=== PATIENT | female | born 1985 | race Caucasian/White ===

== ENCOUNTER 2023-05-30 07:54 | Outpatient (CLI) | payer OTHER, SELFPAY ==
--- NOTE | 2023-05-30 08:24 | MM_ITS ---
WS: [id number] Bilateral screening 3D tomosynthesis digital mammogram, 05/30/2023 Clinical Data: SCREEN Comparison: None. Findings: The breast parenchymal pattern shows fat replacement. No spiculated masses or clustered calcification s are seen. There are no secondary signs of carcinoma. Impression: 1. Negative bilateral mammogram with no prior exam for review. 2. Recommend annual screening mammograms. MM/[place] [address] BIRADS: 1-Negative FOLLOW UP: 1 Year Follow-up The CAD program checker was used.
== END 2023-05-30 07:55 | disposition home or self-care (01) ==
LOC: RAD 07:55
PROVIDERS: PCP Nurse Practitioner; Visit Provider Nurse Practitioner
DX: Z12.31 Encounter for screening mammogram for malignant neoplasm of breast (principal)
CPT/HCPCS: 77063; 77067

== ENCOUNTER 2023-10-13 06:00 | Outpatient (CLI) | payer OTHER, SELFPAY | END 2023-10-13 23:59 | disposition home or self-care (01) | LOC: SPT 10-14 07:43 | PROVIDERS: PCP Nurse Practitioner; Visit Provider Specialist | DX: Z46.89 Encounter for fitting and adjustment of other specified devices (principal); G56.03 Carpal tunnel syndrome, bilateral upper limbs | CPT/HCPCS: 99204; L3908 ==

== ENCOUNTER → 2023-10-13 12:58 | Outpatient (BNVA) | payer OTHER, SELFPAY | PROVIDERS: PCP Nurse Practitioner; Referring Provider Nurse Practitioner; Visit Provider Specialist | DX: G56.03 Carpal tunnel syndrome, bilateral upper limbs | CPT/HCPCS: 73110 ==

== ENCOUNTER → 2024-05-24 08:38 | Outpatient (BNVA) | payer OTHER, SELFPAY | PROVIDERS: PCP Nurse Practitioner; Visit Provider Specialist | DX: G56.01 Carpal tunnel syndrome, right upper limb (principal) | CPT/HCPCS: 99214 ==

== ENCOUNTER → 2024-06-21 09:16 | Outpatient (BNVA) | payer OTHER, SELFPAY | PROVIDERS: PCP Nurse Practitioner; Visit Provider Specialist | DX: G56.03 Carpal tunnel syndrome, bilateral upper limbs (principal) | CPT/HCPCS: 99214 ==

== ENCOUNTER 2024-07-01 05:35 | Day surgery (SDC) | payer OTHER, SELFPAY ==
[2024-07-01] VITALS (10 sets, daily range): BP systolic 92–131; BP diastolic 46–86; PULSE 63–73; RESP 14–18; TEMP 36.2–36.6; O2SAT 96–100
[2024-07-01] MEDS: sodium chloride 0.9% 1,000 ML 30 ML IV (06:06)
[2024-07-01] MEDS: CELEcoxib 200 mg Capsule 400 MG PO (06:06)
[2024-07-01] MEDS: acetaminophen 1,000 MG/100 ML PIGGYBACK 400 MG IV (06:06)
--- NOTE | 2024-07-01 06:20 | ANES.PREANE2 ---
Pre-Anesthetic Assessment Height/Weight: Height 5 ft 9 in Weight 175 lb Temp Pulse Resp BP Pulse Ox O2 Del Method 97.6 F 63 16 104/46 98 Room Air 07/01/24 05:51 07/01/24 05:51 07/01/24 05:51 07/01/24 05:51 07/01/24 05:51 07/01/24 05:51 Preop Diagnosis: Carpal tunnel Operation Date: 07/01/24 07:00 Proposed Procedures p Carpal Tunnel Release(Right) - Reyna Sebastian MD Was Beta Danitza taken within 24 hours: N/A Was Clonidine taken within 24 hours: N/A Last intake: Intake Last Liquid Date 06/30/24 Last Liquid Time 23:40 Last Solid Date 06/30/24 Last Solid Time 22:30 Social Tobacco and No alcohol Exam alert, oriented x 3, clear to auscultation bilaterally and regular rate & rhythm Airway Submandibular: within normal limits Cervical ROM: within normal limits Mallampati: Class II Dentition: full Comments: Comments: Denies any loose teeth Anesthetic Plan ASA status: 2 Anesthesia: General Other: No prior issues with anesthesia NPO since yesterday Current smoker, nicotine and marijuana Patient is transitioning to a male and takes weekly testosterone injections Denies any cardiac issues METs greater than 4 Plan for general anesthesia Medications/Allergies Home Medications Medication Instructions Recorded Confirmed Last Taken Type Cock Up Wrist Splints #1 ea 10/13/23 06/21/24 Unknown Rx testosterone enanthate 100 mg/0.5 100 mg SUBCUT Q7D 05/24/24 07/01/24 06/28/24 History mL subcutaneous auto-injector Allergies Allergy/AdvReac Type Severity Reaction Status Date / Time No Known Allergies Allergy Verified 06/30/24 10:11 Current Medications Generic Name Dose Route Start Last Admin Trade Name Freq PRN Reason Stop Dose Admin Sodium Chloride 1,000 mls @ 30 mls/hr 07/01/24 05:45 07/01/24 06:06 Sodium Chloride 0.9% IV 07/02/24 05:44 30 mls/hr .Q24H JIMMIE Administration PFSH Anesthesia Social History Smoking and tobacco/nicotine status: never used tobacco/nicotine Female Reproductive History Date of last menstrual period: 07/01/23 Data Anesthesia Cardiac Studies: No Data to Display
[2024-07-01 06:51] LABS: OR HCG Qualitative Urine Negative (Negative)
[2024-07-01] MEDS: ceFAZolin 2,000 mg SDV 2000 MG IVP (07:04)
--- NOTE | 2024-07-01 07:05 | P.HPUD_ITS ---
Surgery/Procedure H&P Update DATE OF PROCEDURE: July 01, 2024 DATE H&P PERFORMED: 06/21/24 H&P UPDATE INFORMATION: I have reviewed H&P completed within last 30 days, I have examined patient prior to procedure, No changes to prior documentation and H&P is in [facility] EMR on date indicated PREOP DIAGNOSIS: Carpal tunnel PLANNED PROCEDURE: Operation Date: 07/01/24 07:00 Proposed Procedures p Carpal Tunnel Release(Right) - Reyna Sebastian MD Related Problem List Diagnoses (1) Carpal tunnel syndrome on right:
[2024-07-01] MEDS: BUPivacaine 0.5% INJ 30 mL XX (07:35)
--- NOTE | 2024-07-01 08:31 | PM.OP ---
Operative Report Date of procedure: July 01, 2024 Pre-op diagnosis: Right carpal tunnel syndrome Post-op diagnosis: Right carpal tunnel syndrome Post-op findings: Severe compression across the carpal canal with compression across the median nerve and purpleish discoloration Procedure done: Right carpal tunnel release Implants: None Specimens removed/disposition: None Pathology: None Surgeon: Reyna Sebastian MD [employer] Design Lead: None Anesthesia: General (Per LMA, ASA 2) Estimated blood loss (mL): 2 Tourniquet time (min): 20 (At 250 mmHg) IV fluids (mL): 500 Urine output (mL): 0 (No Espinoza) Complications: None Findings: Compression across the median nerve with purplish discoloration and compression Condition: stable Disposition: PACU (Then return to same-day surgery for discharge to home) Brief History: This 39-year-old patient presented to my office for evaluation of right hand numbness and pain consistent with carpal tunnel syndrome. The patient had nerve conduction studies obtained in [place] which demonstrated findings consistent with moderate carpal tunnel syndrome bilaterally. Her right hand was worse than her left. She wished to proceed with carpal tunnel release. While in the office, questions were answered, risks and complications were discussed, and consents were signed. Procedure: The patient was brought to the operating theater. The patient had a general anesthesia per LMA, ASA 2. The tourniquet was elevated to 250 mmHg for a total tourniquet time of 20 minutes. The patient was also given Ancef 2 g preoperatively. The arm was then prepped and draped with DuraPrep in usual fashion with the arm draped free. A surgical pause was performed. At the time, the surgical pause, we confirmed the site and side of surgery. We also confirmed the patient's identity, appropriate and timely administration of preoperative antibiotics and preoperative surgical markings. An incision was then made along the thenar crease. The incision crossed the wrist joint in a curvilinear fashion. Dissection continued through skin and soft tissues using a scalpel. The palmaris longus was identified along with the transverse carpal ligament. Each of these was released carefully to avoid injury to the median nerve. We were able to dissect gently into the carpal canal which was noted to be quite tight with significant compression across the median nerve. The nerve was visualized and was an hourglass shape. The canal was subsequently palpated to assure there was no bony encroachment upon the canal. There was a quite thickened fibrous tissue within the canal, and this was opened longitudinally as well. The canal was then palpated distally and proximally to assure that my small finger was passed easily without impingement. Finding this to be so, attention was directed to closure. The wound was irrigated with ropivacaine plain. It was then closed with 3-0 nylon in an interrupted mattress fashion. Sterile dressing was then placed consisting of Dermabond, OpSite, fluffed fluffs, sterile soft roll, and an Jemal wrap. The tourniquet was released after 20 minutes. There were no complications. There were no specimens. The procedure was well tolerated. Plan is the patient will be discharged home. Related Problem List Diagnoses (1) Carpal tunnel syndrome on right:
--- NOTE | 2024-07-01 09:07 | ANE.PACU2 ---
Inpatient post-anesthesia follow up: Airway intact: Yes Vital signs: Temperature 98 F Pulse Rate 73 Respiratory Rate 18 Blood Pressure 108/60 Pulse Oximetry 98 Oxygen Delivery Me thod Room Air Oxygen Flow Rate 7 Fraction of Inspir ed Oxygen Hydration adequate: Yes Nausea and vomiting: No Pain level: 1 Mental status: Baseline
== END 2024-07-01 09:07 | disposition home or self-care (01) ==
PROVIDERS: Anesthesiology; PCP Nurse Practitioner; Visit Provider Specialist
PROC: (CPT 64721; principal; 2024-07-01 07:00)
DX: G56.01 Carpal tunnel syndrome, right upper limb (principal); F17.200 Nicotine dependence, unspecified, uncomplicated
CPT/HCPCS: 64721; 81025; J0131; J0690; J1100; J2250; J2405; J2704; J3010; J3490; J7030

== ENCOUNTER → 2024-07-14 09:51 | Outpatient (BNVA) | payer OTHER, SELFPAY | PROVIDERS: PCP Nurse Practitioner; Visit Provider Nurse Practitioner | DX: Z98.890 Other specified postprocedural states (principal); Z48.89 Encounter for other specified surgical aftercare | CPT/HCPCS: 99024 ==

== ENCOUNTER 2024-10-12 12:14 | Outpatient (CLI) | payer OTHER, SELFPAY ==
--- NOTE | 2024-10-12 12:15 | MM_ITS ---
WS: [id number] BILATERAL 3D TOMOSYNTHESIS DIGITAL SCREENING MAMMOGRAPHY WITH CAD CLINICAL INFORMATION: SCREENING HISTORY: Screening mammogram. No current complaints. COMPARISON: 2022 TECHNIQUE: Bilateral CC and MLO views. FINDINGS: The breasts are composed of heterogeneous fibroglandular density tissue, which can limit the detection of small underlying mass lesions. No suspicious mass, asymmetry, calcifications, or architectural distortion. No evidence of malignancy. MM/MM scr tomosynthesis [id number] IMPRESSION: DENSITY: The breasts are heterogeneously dense, which may obscure small masses. BI-RADS: 1 - Negative FOLLOW UP: 1 Year Follow-up Recommend return to annual screening mammography.
== END 2024-10-12 12:15 | disposition home or self-care (01) ==
LOC: RAD 12:14
PROVIDERS: PCP Nurse Practitioner; Visit Provider Nurse Practitioner
DX: Z12.31 Encounter for screening mammogram for malignant neoplasm of breast (principal); R92.333 Mammographic heterogeneous density, bilateral breasts
CPT/HCPCS: 77063; 77067

== ENCOUNTER → 2025-04-11 14:54 | Outpatient (BNVA) | payer OTHER, SELFPAY | PROVIDERS: PCP Nurse Practitioner; Visit Provider Specialist | DX: G56.02 Carpal tunnel syndrome, left upper limb (principal); Z01.818 Encounter for other preprocedural examination | CPT/HCPCS: 36415; 73110; 80053; 81003; 85025; 87086; 99215 ==

== ENCOUNTER 2025-05-10 12:43 | Day surgery (SDC) | payer OTHER, SELFPAY ==
[2025-05-10] VITALS (10 sets, daily range): BP systolic 99–133; BP diastolic 51–83; PULSE 55–72; RESP 17–18; TEMP 36.1–36.6; O2SAT 95–100; BMI 26.1
[2025-05-10] MEDS: acetaminophen 1,000 MG/100 ML PIGGYBACK 400 MG IV (13:19)
[2025-05-10 13:35] LABS: OR HCG Qualitative Urine Negative (Negative)
--- NOTE | 2025-05-10 14:43 | ANES.PREANE2 ---
Pre-Anesthetic Assessment Height/Weight: Height 1.75 m Weight 80.286 kg Temp Pulse Resp BP Pulse Ox O2 Del Method 97.6 F 61 17 108/63 99 Room Air 05/10/25 13:07 05/10/25 13:07 05/10/25 13:07 05/10/25 13:07 05/10/25 13:07 05/10/25 13:07 Operation Date: 05/10/25 14:30 Proposed Procedures p LEFT Carpal Tunnel Release(Left) - Reyna Sebastian MD Familial anesthetic complications: None Was Beta Danitza taken within 24 hours: N/A Was Clonidine taken within 24 hours: N/A Last intake: Intake Last Liquid Date 05/09/25 Last Liquid Time 22:30 Last Solid Date 05/09/25 Last Solid Time 22:30 Social Tobacco and No alcohol Exam alert, oriented x 3, clear to auscultation bilaterally and regular rate & rhythm Airway Mallampati: Class II Dentition: loose Metabolic Weekly testosterone injections Anesthetic Plan ASA status: 2 Anesthesia: General Risk of > 500 ml blood loss (7ml/kg in children): No Medications/Allergies Home Medications ?Medication ?Instructions ?Recorded ?Confirmed ?Last Taken ?Type Cock Up Wrist Splints #1 ea 10/13/23 04/12/25 Unknown Rx testosterone enanthate 100 mg/0.5 100 mg SUBCUT Q7D 05/24/24 05/09/25 05/05/25 History mL subcutaneous auto-injector Allergies Allergy/AdvReac Type Severity Reaction Status Date / Time No Known Allergies Allergy Verified 05/10/25 13:07 Current Medications Generic Name Dose Route Start Last Admin Trade Name mSith PRN Reason Stop Dose Admin Sodium Chloride 1,000 mls @ 30 mls/hr 05/10/25 13:00 05/10/25 13:20 Sodium Chloride 0.9% IV 05/11/25 12:59 30 mls/hr .Q24H JIMMIE Administration PFSH Anesthesia Social History Smoking and tobacco/nicotine status: never used tobacco/nicotine
--- NOTE | 2025-05-10 14:53 | W.PM.OPSUD ---
Surgery/Procedure H&P Update DATE OF PROCEDURE: May 10, 2025 DATE H&P PERFORMED: 04/11/25 H&P UPDATE INFORMATION: I have reviewed H&P completed within last 30 days, I have examined patient prior to procedure, No changes to prior documentation, H&P is in [facility] EMR on date indicated and Risks and benefits of the procedure reviewed PLANNED PROCEDURE: Operation Date: 05/10/25 14:30 Proposed Procedures p LEFT Carpal Tunnel Release(Left) - Reyna Sebastian MD Related Problem List Diagnoses 1. Carpal tunnel syndrome, left:
[2025-05-10] MEDS: ceFAZolin 2,000 mg SDV 2000 MG IVP (15:00)
[2025-05-10] MEDS: BUPivacaine 0.5% INJ 30 mL INJECTION (15:31)
--- NOTE | 2025-05-10 15:43 | P.OP_ITS ---
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 Patient was having increasing pain and numbness. On July 01, 2024, the patient underwent right carpal tunnel release and has done well following this. After discussion in the office, plans were made to proceed with left carpal tunnel release. Consents were signed and questions were answered. Further Opportunity for questions was offered the day of surgery. Procedure: The patient was brought to the operating theater. The patient had a general anesthesia per LMA, ASA 2. The tourniquet was elevated to 250 mmHg for a total tourniquet time of 18 minutes. The patient was also given Ancef 2 g preoperatively. The arm was then prepped and draped with DuraPrep in usual fashion with the arm draped free. A surgical pause was performed. At the time, the surgical pause, we confirmed the site and side of surgery. We also confirmed the patient's identity, appropriate and timely administration of preoperative antibiotics and preoperative surgical markings. An incision was then made along the thenar crease. The incision crossed the wrist joint in a curvilinear fashion. Dissection continued through skin and soft tissues using a scalpel. The palmaris longus was identified along with the transverse carpal ligament. Each of these was released carefully to avoid injury to the median nerve. We were able to dissect gently into the carpal canal which was noted to be quite tight with significant compression across the median nerve. The nerve was visualized and was an hourglass shape. The canal was subsequently palpated to assure there was no bony encroachment upon the canal. There was a quite thickened fibrous tissue within the canal, and this was opened longitudinally as well. The canal was then palpated distally and proximally to assure that my small finger was passed easily without impingement. Finding this to be so, attention was directed to closure. The wound was irrigated with ropivacaine plain. It was then closed with 3-0 nylon in an interrupted mattress fashion. Sterile dressing was then placed consisting of Dermabond, OpSite, fluffed fluffs, sterile soft roll, and an Jemal wrap. The tourniquet was released after 19 minutes. There were no complications. There were no specimens. The procedure was well tolerated. Plan is the patient will be discharged home. Related Problem List Diagnoses 1. Carpal tunnel syndrome, left:
== END 2025-05-10 16:45 | disposition home or self-care (01) ==
PROVIDERS: PCP Nurse Practitioner; Visit Provider Specialist
PROC: (CPT 64721; principal; 2025-05-10 14:20)
DX: G56.02 Carpal tunnel syndrome, left upper limb (principal)
CPT/HCPCS: 64721; 81025; J0131; J0690; J1100; J2250; J2405; J2704; J3010; J3490; J7030; J9999

== ENCOUNTER → 2025-05-23 14:00 | Outpatient (BNVA) | payer OTHER, SELFPAY | PROVIDERS: PCP Nurse Practitioner; Visit Provider Nurse Practitioner | DX: Z98.890 Other specified postprocedural states (principal) | CPT/HCPCS: 99024 ==